=== PATIENT | female | born 1995 | race African-American/Black ===

== ENCOUNTER 2025-01-23 09:39 | Outpatient (CLI) | payer OTHER | END 2025-01-23 09:40 | disposition home or self-care (01) | LOC: SCSRAD 09:39 | PROVIDERS: ATTEND Student in an Organized Health Care Education/Training Program | DX: M25.562 Pain in left knee (principal); M25.561 Pain in right knee; Z11.3 Encounter for screening for infections with a predominantly sexual mode of transmission; E28.2 Polycystic ovarian syndrome; D21.9 Benign neoplasm of connective and other soft tissue, unspecified; R53.83 Other fatigue; R73.03 Prediabetes; Z86.2 Personal history of diseases of the blood and blood-forming organs and certain disorders involving the immune mechanism; Z68.41 Body mass index [BMI] 40.0-44.9, adult | CPT/HCPCS: 36415; 80053; 80061; 81001; 82306; 82607; 83036; 84443; 85025; 86780; 86803; 87340; 87389; 87491; 87591 ==